=== PATIENT | female | born 1995 | race Caucasian/White ===

== ENCOUNTER 2020-07-20 01:59 | Inpatient (IN) ==
[2020-07-20 02:07] VITALS: BMI 31.6
[2020-07-20] MEDS ORDERED: D5 1/2 NS 1000 ML 1,000 ML IV ONE (02:10)
[2020-07-20 02:27] LABS: AMNISURE ROM TEST THERE IS A RUPTURE (NO RUPTURE)
[2020-07-20 02:36] LABS: BASOPHILS # (AUTO) 0.1 X10^3/uL (0.0-0.1); BASOPHILS % (AUTO) 0.5 % (0.2-1.0); EOSINOPHILS # (AUTO) 0.1 x10^3/uL (0.0-0.2); EOSINOPHILS % (AUTO) 0.6 % (0.9-2.9); HEMATOCRIT 40.4 % (36.0-47.0); HEMOGLOBIN 13.8 g/dL (12.0-16.0); LYMPHOCYTES % (AUTO) 16.7 % (21.0-51.0); MEAN CORPUSCULAR HEMOGLOBIN 31.3 pg (27.0-34.0); MEAN CORPUSCULAR HGB CONC 34.1 g/dL (33.0-35.0); MEAN PLATELET VOLUME 9.5 fL (7.4-11.0); MONOCYTES % (AUTO) 5.4 % (0.0-13.0); NEUTROPHILS # (AUTO) 13.6 x10^3/uL (2.2-4.8); NEUTROPHILS % (AUTO) 76.8 % (42.0-75.0); PLATELET COUNT 206 X10^3/uL (150.0-450.0); RED BLOOD COUNT 4.39 X10^6/uL (3.5-5.4); RED CELL DISTRIBUTION WIDTH 12.5 % (11.6-16.5); WHITE BLOOD COUNT 17.8 X10^3/uL (3.6-10.0)
[2020-07-20 02:44] LABS: ALANINE AMINOTRANSFERASE 20 Units/L (12-78); ALBUMIN 2.6 g/dL (3.4-5.0); ALKALINE PHOSPHATASE 118 Units/L (46-116); ASPARTATE AMINO TRANSFERASE 16 Units/L (15-37); BLOOD UREA NITROGEN 10 mg/dL (7-18); CALCIUM 9.4 mg/dL (8.5-10.1); CARBON DIOXIDE 24.1 mmol/L (21-32); CHLORIDE 103 mmol/L (98-107); COR CA(FOR HYPOALB) 10.5 mg/dL (8.5-10.1); CREATININE 0.76 mg/dL (0.55-1.02); SODIUM 138 mmol/L (136-145); TOTAL PROTEIN 7.2 g/dL (6.4-8.2); eGFR NON BLACK RACES > 60 (>60)
[2020-07-20] MEDS ORDERED: D5 1/2 NS 1L W PITOCIN 20 UNITS/L 20 UNITS/1,000 ML BAG IV ONE (03:32)
[2020-07-20] MEDS ORDERED: D5LR 1L W PITOCIN 10 UNITS/L 10 UNITS/1,000 ML BAG IV ONE (03:32)
[2020-07-20] MEDS ORDERED: PITOCIN ONE (03:32)
[2020-07-20] MEDS ORDERED: FENTANYL INJ 100 mcg ONE (03:34)
[2020-07-20] MEDS ORDERED: LR 1000 ML IV 1,000 ML IV ONE (03:34)
[2020-07-20] MEDS ORDERED: FENTANYL 2 mcg/mL-ROPIV 0.1%-NS EPIDURAL 200 ML EPI ONE (03:35)
[2020-07-20] MEDS ORDERED: AMPICILLIN VIAL 2 GRAM ONE (03:40)
[2020-07-20] MEDS ORDERED: NS 100 ML IV 100 ML IV ONE ×2 (03:40→08:18)
[2020-07-20] MEDS ORDERED: AMPICILLIN VIAL 2 GRAM 2 G in NS 100 ML IV + SPIKE MINIBAG* 100 ML IV SCH (04:00)
[2020-07-20] MEDS ORDERED: D5 1/2 NS 1000 ML 1,000 ML IV SCH (04:00)
[2020-07-20] MEDS ORDERED: D5LR 1L W PITOCIN 10 UNITS/L 10 UNITS/1,000 ML BAG IV PRN (05:00)
[2020-07-20 05:32] LABS: BILIRUBIN,URINE NEGATIVE (NEGATIVE); BLOOD/HEMOGLOBIN,URINE NEGATIVE (NEGATIVE); GLUCOSE, URINE NEGATIVE (NEGATIVE); KETONES,URINE NEGATIVE (NEGATIVE); LEUKOCYTE ESTERASE ,URINE NEGATIVE (NEGATIVE); NITRITES,URINE NEGATIVE (NEGATIVE); PROTEIN,URINE NEGATIVE (NEGATIVE); UROBILINOGEN,URINE NORMAL (NORMAL)
[2020-07-20 05:34] LABS: APPEARANCE,URINE CLEAR (CLEAR); COLOR,URINE YELLOW (YELLOW)
--- NOTE | 2020-07-20 06:28 | DR.OB ---
OB Quick Note - Assessment/Plan Assessment/Plan: L&D 07/20/20 at 6:15am Pitocin=4mu/min. Ampicillin S-No complaint. s/p epidural. O-Afebrile,VSS SBO=351 with good LTV, +accel, no decel. CTX=q 1 1/2 to 3 min., mod. by palpation CVX=3cm/90%/-1/VTX IUPC and FSE placed. Clear fluid noted. A-IUP at 35 6/7 weeks with SROM Unknown GBS P-Cont. pitocin augmentation Cont. IV ABX in labor Anticipate
[2020-07-20] MEDS ORDERED: AMPICILLIN VIAL 1 GRAM ONE (08:18)
[2020-07-20] MEDS: AMPICILLIN VIAL 1 GRAM 1 G in NS 50 ML IV + SPIKE MINIBAG* 50 ML IV SCH ×2 (08:25→13:17)
[2020-07-20] MEDS ORDERED: REGLAN INJ 10 MG VIAL IVP PRN (09:00)
[2020-07-20] MEDS ORDERED: BETADINE SOLN ONE (10:00)
[2020-07-20] MEDS ORDERED: PHENERGAN INJ 25 MG IM PRN (11:31)
[2020-07-20] MEDS ORDERED: MOTRIN TAB 800 MG PO PRN (11:31)
--- NOTE | 2020-07-20 11:37 | DR.OB ---
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 Head delivered over intact perineum. No nuchal cord. Nose and mouth bulb suctioned. Body delivered over intact perineum with compound presentation (left hand at head). Cord clamped x 2 and cut. handed to attendant. Cord sent for gases. Placenta delivered spontaneously / intact / 3 vessel cord. No CVX tears. A small laceration noted at left introitus--repaired with 0-vicryl. Viable female , VTX/OA, wt=6'0" and 9/10, stable to NBN. Mother to RR in stable condition. [id number]=[id number].
[2020-07-20] MEDS: D5 1/2 NS 1000 ML 1,000 ML with PITOCIN 20 UNITS IV SCH ×4 (12:00→23:30)
[2020-07-20] MEDS: D5 1/2 NS 1000 ML 1,000 ML IV SCH ×2 (13:18→13:19)
[2020-07-20] MEDS ORDERED: ADACEL or BOOSTRIX TDaP VACCINE IM ONE (13:22)
[2020-07-20] MEDS ORDERED: MILK OF MAGNESIA PO PRN (13:22)
[2020-07-20] MEDS ORDERED: DERMOPLAST PAIN RELIEF SPRAY TOP PRN (13:22)
[2020-07-20] MEDS ORDERED: AMBIEN PO PRN (13:22)
[2020-07-21 04:24] LABS: HEMATOCRIT 35.7 % (36.0-47.0); HEMOGLOBIN 12.1 g/dL (12.0-16.0)
[2020-07-21] MEDS ORDERED: PRENATAL PLUS PO SCH (09:00)
[2020-07-21] MEDS ORDERED: ADACEL or BOOSTRIX TDaP VACCINE IM ONE (10:02)
[2020-07-21 13:15] VITALS: BP 114/77
== END 2020-07-21 13:10 | disposition home or self-care (01) | DRG 807 ==
LOC: ER 02:00 → LD 03:07 → MED/SURG 13:23
PROVIDERS: ADMIT Specialist; ATTEND Specialist
DX: O60.13X0 Preterm labor second trimester with preterm delivery third trimester, not applicable or unspecified; Z3A.35 35 weeks gestation of pregnancy; O70.0 First degree perineal laceration during delivery; Z37.0 Single live birth; Z23 Encounter for immunization

== ENCOUNTER 2022-09-19 04:22 | Inpatient (IN) ==
[2022-09-19] MEDS ORDERED: D5 1/2 NS 1,000 ML 1,000 ML IV ONE ×2 (04:32→04:33)
[2022-09-19 04:36] VITALS: BMI 30.9
[2022-09-19 04:38] LABS: BILIRUBIN,URINE NEGATIVE (NEGATIVE); BLOOD/HEMOGLOBIN,URINE 5+ (NEGATIVE); GLUCOSE, URINE NEGATIVE (NEGATIVE); KETONES,URINE NEGATIVE (NEGATIVE); LEUKOCYTE ESTERASE ,URINE 1+ (NEGATIVE); NITRITES,URINE NEGATIVE (NEGATIVE); PROTEIN,URINE 3+ (NEGATIVE); UROBILINOGEN,URINE NORMAL (NORMAL)
[2022-09-19 04:39] LABS: AMNISURE ROM TEST THERE IS A RUPTURE (NO RUPTURE); APPEARANCE,URINE CLOUDY (CLEAR); COLOR,URINE YELLOW (YELLOW)
[2022-09-19] MEDS ORDERED: AMPICILLIN VIAL 2 GRAM ONE (04:42)
[2022-09-19] MEDS ORDERED: NS 100 ML IV 100 ML ONE ×2 (04:42→07:11)
[2022-09-19] MEDS ORDERED: AMPICILLIN VIAL 2 GRAM 2 G in NS 100 ML IV 100 ML IV SCH (04:42)
[2022-09-19] MEDS ORDERED: AMPICILLIN VIAL 2 GRAM 2 G in NS 100 ML IV 100 ML IV ONE (04:45)
[2022-09-19 04:53] LABS: BASOPHILS # (AUTO) 0.2 X10^3/uL (0.0-0.1); BASOPHILS % (AUTO) 1.1 % (0.2-1.0); EOSINOPHILS # (AUTO) 0.1 x10^3/uL (0.0-0.2); EOSINOPHILS % (AUTO) 0.4 % (0.9-2.9); HEMATOCRIT 36.4 % (36.0-47.0); HEMOGLOBIN 12.3 g/dL (12.0-16.0); LYMPHOCYTES # (AUTO) 3.1 X10^3/uL (1.3-2.9); LYMPHOCYTES % (AUTO) 21.8 % (21.0-51.0); MEAN CORPUSCULAR HEMOGLOBIN 27.7 pg (27.0-34.0); MEAN CORPUSCULAR HGB CONC 33.6 g/dL (33.0-35.0); MEAN CORPUSCULAR VOLUME 82.5 fL (80.0-100.0); MEAN PLATELET VOLUME 9.4 fL (7.4-11.0); MONOCYTES # (AUTO) 0.8 x10^3/uL (0.3-0.8); MONOCYTES % (AUTO) 5.4 % (0.0-13.0); NEUTROPHILS # (AUTO) 10.2 x10^3/uL (2.2-4.8); NEUTROPHILS % (AUTO) 71.3 % (42.0-75.0); RED BLOOD COUNT 4.42 X10^6/uL (3.5-5.4); RED CELL DISTRIBUTION WIDTH 14.1 % (11.6-16.5); WHITE BLOOD COUNT 14.4 X10^3/uL (3.6-10.0)
[2022-09-19] MEDS ORDERED: REGLAN INJ 10 MG VIAL IVP PRN (04:57)
[2022-09-19] MEDS ORDERED: STADOL INJ IVP PRN (04:57)
[2022-09-19] MEDS ORDERED: DILAUDID INJ IVP PRN (04:57)
[2022-09-19] MEDS ORDERED: PITOCIN IVP ONE (04:57)
[2022-09-19] MEDS ORDERED: MORPHINE SULFATE INJ 2 MG INJ IVP PRN (04:57)
[2022-09-19] MEDS ORDERED: PHENERGAN INJ 25 MG IM PRN ×2 (04:57→09:17)
[2022-09-19] MEDS ORDERED: D5 LR + PITOCIN 10 UNITS/L 10 UNITS/1,000 ML BAG IV PRN (04:57)
[2022-09-19] MEDS ORDERED: D5 1/2 NS 1,000 ML 1,000 ML IV SCH (05:00)
[2022-09-19 05:05] LABS: ALANINE AMINOTRANSFERASE 13 Units/L (12-78); ALBUMIN 2.5 g/dL (3.4-5.0); ALKALINE PHOSPHATASE 168 Units/L (46-116); ASPARTATE AMINO TRANSFERASE 14 Units/L (15-37); BLOOD UREA NITROGEN 10 mg/dL (7-18); CALCIUM 8.1 mg/dL (8.5-10.1); CARBON DIOXIDE 21.9 mmol/L (21-32); CHLORIDE 103 mmol/L (98-107); COR CA(FOR HYPOALB) 9.3 mg/dL (8.5-10.1); CREATININE 0.79 mg/dL (0.55-1.02); SODIUM 136 mmol/L (136-145); TOTAL PROTEIN 6.4 g/dL (6.4-8.2); eGFR NON BLACK RACES > 60 (>60)
[2022-09-19 05:10] LABS: BACTERIA,URINE 1+ /HPF (NEGATIVE); SQUAMOUS EPITHELIAL CELL,UR NUMEROUS /HPF (NEGATIVE)
[2022-09-19] MEDS ORDERED: ZOFRAN INJ 4 MG VIAL ONE (05:13)
[2022-09-19 05:16] LABS: PLATELET MORPHOLOGY COMMENT NORMAL (NORMAL)
[2022-09-19] MEDS ORDERED: LR 1,000 ML IV 0 ML IV ONE (05:25)
[2022-09-19] MEDS ORDERED: FENTANYL VIAL INJ 100 mcg ONE (05:25)
[2022-09-19] MEDS ORDERED: NAROPIN EPIDURAL 0.2% 100 ML ONE (05:25)
[2022-09-19] MEDS ORDERED: BETADINE SOLN ONE (05:26)
[2022-09-19] MEDS ORDERED: D5 1/2 NS 1,000 mL + PITOCIN 20 UNITS/L IV 20 UNITS/1,000 ML BAG IV ONE (05:26)
[2022-09-19] MEDS ORDERED: EPHEDRINE SULFATE INJ ONE (05:47)
--- NOTE | 2022-09-19 07:10 | DR.OB ---
OB Quick Note - Assessment/Plan Assessment/Plan: L&D 09/19/22 at 7:00am S-No complaint. s/p epidural. O-Afebrile,VSS GTL=100 with good LTV, +accel, no decel. CTX=q 1 1/2 to 2 min., strong by palpation CVX=6cm/100%/0/VTX Clear fluid noted (SROM), IUPC and FSE placed. A-IUP at 37 4/7 weeks in active labor P-Begin pitocin augmentation +GBS ABX in labor for +GBS Anticipate
[2022-09-19] MEDS ORDERED: AMPICILLIN VIAL 1 GRAM ONE (07:11)
[2022-09-19] MEDS ORDERED: AMPICILLIN VIAL 1 GRAM 1 G in NS 50 ML IV 50 ML IV SCH (08:45)
[2022-09-19] MEDS: D5 1/2 NS 1,000 ML 1,000 ML with PITOCIN 20 UNITS IV SCH ×4 (09:07→17:32)
[2022-09-19] MEDS ORDERED: MOTRIN TAB 800 MG PO PRN (09:17)
--- NOTE | 2022-09-19 09:17 | DR.OB ---
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 Head delivered over intact perineum. Nose and mouth bulb suctioned. No nuchal cord. Head delivered over intact perineum. Cord clamped x 2 and cut. Infant handed to attendant. Cord sent for gases. Placenta delivered spontaneously / intact / 3 vessel cord. No CVX / vaginal / perineal tears. Viable female infant, SVE, VTX/OA, wt=7'12" and 9/10, stable to NBN. Mother stable to RR. AQY=725.
[2022-09-19] MEDS ORDERED: ADACEL or BOOSTRIX TDaP VACCINE IM ONE (10:21)
[2022-09-19] MEDS ORDERED: DERMOPLAST PAIN RELIEF SPRAY TOP PRN (10:21)
[2022-09-19] MEDS ORDERED: AMBIEN PO PRN (10:21)
[2022-09-19] MEDS ORDERED: MILK OF MAGNESIA PO PRN (10:21)
[2022-09-20] MEDS: D5 1/2 NS 1,000 ML 1,000 ML with PITOCIN 20 UNITS IV SCH ×2 (03:15)
[2022-09-20 05:22] LABS: HEMATOCRIT 33.1 % (36.0-47.0); HEMOGLOBIN 11.2 g/dL (12.0-16.0)
[2022-09-20] MEDS ORDERED: PRENATAL PLUS PO ONE (07:27)
[2022-09-20 08:00] VITALS: BP 123/81
[2022-09-20] MEDS ORDERED: PRENATAL PLUS PO SCH (09:00)
== END 2022-09-20 10:54 | disposition home or self-care (01) | DRG 806 ==
LOC: ER 04:24 → LD 04:44 → MED/SURG 10:17
PROVIDERS: ADMIT Specialist; ATTEND Specialist
DX: Z3A.37 37 weeks gestation of pregnancy; B95.1 Streptococcus, group B, as the cause of diseases classified elsewhere; O98.82 Other maternal infectious and parasitic diseases complicating childbirth; Z37.0 Single live birth; O47.03 False labor before 37 completed weeks of gestation, third trimester